=== PATIENT | female | born 1965 | race Caucasian/White ===

== ENCOUNTER → 2020-09-14 | Outpatient (CLI) | payer OTHER ==
[2020-09-15 11:15] LABS: RHEUMATOID ARTHRITIS FACTOR <10.0 IU/mL (0.0-13.9)
[2020-09-18 04:06] LABS: CCP ANTIBODIES IGG/IGA 9 units (0-19)
== END ==
LOC: LAB 12:05
PROVIDERS: Nurse Practitioner Family
DX: M54.5 Low back pain (principal); M25.50 Pain in unspecified joint; M79.10 Myalgia, unspecified site; M47.814 Spondylosis without myelopathy or radiculopathy, thoracic region; M47.816 Spondylosis without myelopathy or radiculopathy, lumbar region
CPT/HCPCS: 36415; 72070; 72100; 73630; 82550; 82728; 83520; 85652; 86140; 86200; 86431

== ENCOUNTER → 2021-12-28 | Outpatient (CLI) | payer OTHER | LOC: KOH-I 12-21 13:00 | DX: M50.022 Cervical disc disorder at C5-C6 level with myelopathy (principal); M47.12 Other spondylosis with myelopathy, cervical region; M25.78 Osteophyte, vertebrae; M48.02 Spinal stenosis, cervical region | CPT/HCPCS: 72141 ==